=== PATIENT | female | born 1960 | race Caucasian/White ===

== ENCOUNTER → 2023-10-03 14:41 | Outpatient (REF) | payer BC, SELFPAY | LOC: HWWDC 14:41 | PROVIDERS: ATTENDING PHYSICIAN Internal Medicine | DX: Z12.31 Encounter for screening mammogram for malignant neoplasm of breast (principal) | CPT/HCPCS: 77063; 77067 ==

== ENCOUNTER → 2023-12-19 06:19 | Day surgery (SDC) | payer BC, SELFPAY ==
[2023-12-19 07:10] LABS: Glucose - Point of Care 116 mg/dl (70-99)
== END ==
LOC: GI 06:19
PROVIDERS: ATTENDING PHYSICIAN Internal Medicine; FAMILY PHYSICIAN Internal Medicine
DX: Z12.11 Encounter for screening for malignant neoplasm of colon (principal); K57.30 Diverticulosis of large intestine without perforation or abscess without bleeding
CPT/HCPCS: G0121; 82962

== ENCOUNTER → 2024-03-13 14:56 | Outpatient (REF) | payer BC, SELFPAY | LOC: HWRCS 14:56 | PROVIDERS: ATTENDING PHYSICIAN Internal Medicine Cardiovascular Disease; FAMILY PHYSICIAN Internal Medicine | DX: I35.0 Nonrheumatic aortic (valve) stenosis (principal) | CPT/HCPCS: 93306 ==

== ENCOUNTER → 2024-04-01 14:35 | Outpatient (REF) | payer BC, SELFPAY | LOC: HWRAD 14:35 | PROVIDERS: ATTENDING PHYSICIAN Internal Medicine | DX: Z78.0 Asymptomatic menopausal state (principal) | CPT/HCPCS: 77080 ==

== ENCOUNTER 2024-04-14 21:42 | Inpatient (IN) | payer BC, SELFPAY ==
--- NOTE | 2024-04-14 13:04 | ED.GENMED ---
ED Provider Triage
<Jenny Boyd PA-C - Last Filed: 04/14/24 13:10>
-
Patient seen by provider in Triage?: Seen in Triage
Attestation: A medical screening examination has been initiated by a qualified medical provider. Based on the assessment performed at this time, it has been determined that an emergent medical condition may exist and the patient has been informed
that further medical evaluation and possible additional diagnostic testing may be needed.
HPI: 63yoF here with dizziness. She was standing at work around 11:30am this morning when she started to feel lightheaded, nauseous, and broke out into a cold sweat. [place] off balance but denies vertigo. Still feels dizzy and sister states her gait
is abnormal. Recent echo last month showed borderline severe aortic stenosis.
GENERAL: Alert , in no apparent distress
EYE: No visual abnormalities.
NECK: Trachea midline
ENT: No visible abnormalities.
LUNGS: No acute respiratory distress
NEUROLOGICAL: Alert and oriented
SKIN: Skin intact. No visible changes.
MUSCULOSKELETAL: Moving extremities normally
PSYCH: Normal and appropriate interaction.
This is a medical evaluation conducted in person to initiate diagnostic evaluation and provide initial therapeutics. Please see further documentation by the treating clinician.
Cardiac labs, EKG, and CT head ordered.
History of Present Illness
<Jenny Boyd PA-C - Last Filed: 04/14/24 13:10>
General
Chief Complaint: Dizziness
Time Seen by Provider: 04/14/24 16:49
<Lorne Carroll DO - Last Filed: 04/14/24 20:11>
History of Present Illness
History of Present Illness:
TIME OF INITIAL ENCOUNTER: 5 PM
HPI:
At about 11:30 AM today, while at work, she had sensation of ataxia. She was having trouble walking. Symptoms are persisting but somewhat improved. She had no weakness. This is associated with dizziness and nausea. She felt as if she was going
to pass out earlier.
EXAM:
GENERAL: Well appearing in no distress
HEENT: Moist oral mucosa
CARDIOVASCULAR: No murmurs, normal heart rate, regular rhythm, No chest wall tenderness
PULMONARY: No respiratory distress, breath sounds are clear and equal
ABDOMEN: Soft with no peritoneal signs, no tenderness
NEUROLOGIC: Excellent strength all extremities, slightly impaired finger-nose testing on the right, she was ataxic with walk when I tested her gait and she stumbled to the right side
PSYCHIATRIC: Appropriate mental status, normal insight and judgement
EXTREMITIES: Nontender, no edema, moves all extremities equally
SKIN: No rash, no lesions
NUMBER AND COMPLEXITY OF PROBLEMS ADDRESSED AT THE ENCOUNTER
� Chronic conditions affecting care: High blood pressure, hyperlipidemia, diabetes
� Acute Exacerbation and/or Progression of Chronic Illness: High blood pressure, hyperlipidemia, diabetes
� Differential Diagnosis includes: CVA, TIA, intracranial mass
AMOUNT AND/OR COMPLEXITY OF DATA TO BE REVIEWED AND ANALYZED
� I performed an independent evaluation of and my interpretation is:
EKG: Sinus 75, left axis deviation, no acute ST abnormality
CT: CT brain shows no acute abnormality
X-rays:
Laboratory Studies: Glucose 222, CBC relatively unremarkable, creatinine slightly elevated 1.2, troponin less than 0.012
Other:
� Review of other/old records: The patient had colonoscopy in November 2023
� Clinical information was obtained by an independent historian: I spoke to sister at bedside
� Prescriptions/Medications Considered but not given:
� Further testing considered but not performed:
RISK OF COMPLICATIONS AND/OR MORBIDITY OR MORTALITY OF PATIENT MANAGEMENT
� Social determinants of health affecting care: Lives at home
� Discussion with other providers: I discussed case with Dr. Leiva who recommends CTA head and neck and also recommends MRI
� Escalation of care including admission/observation vs risk of discharge considered: The patient does have some ataxia on physical examination. She is not back to her baseline. CTA also obtained. Will plan to keep in the
hospital for MRI and further neurologic evaluation.
ANY OTHER UPDATES:
Past History
<Jenny Boyd PA-C - Last Filed: 04/14/24 13:10>
Past History
ED Past Medical History: HTN, Hypercholesterolemia and NIDDM
ED Past Surgical History: Appendectomy, Cholecystectomy and
Social History
Living: with family
Employment: Employed
Phy Exam
<Lorne Carroll DO - Last Filed: 04/14/24 20:11>
Physical Exam
Physical Exam:
See HPI
Course
<Jenny Boyd PA-C - Last Filed: 04/14/24 13:10>
Orders/Labs/Results
Orders:
Orders
04/14/24 13:09
Electrocardiogram (*1) Urgent
Reason for Study: Vertigo / Dizzy
EKG- Treatment ONCE
04/14/24 13:10
CT Head W/o Iv Contrast Urgent
Comment:
Reason For Exam: Dizziness
04/14/24 13:12
Complete Blood Count/With Diff Urgent
Comprehensive Metabolic Panel Urgent
Troponin I Urgent
04/14/24 17:13
CT Head & Neck Angio W/wo IV Urgent
Comment:
Reason For Exam: acute ataxia
Abnormal Lab Results
04/14/24
13:12
MCHC 32.6 L g/dL
(33.0-37.0)
RDW 15.3 H %
(11.5-14.5)
Absolute Neuts (auto) 8.4 H 10^3/uL
(1.4-6.5)
Neutrophils % 77.7 H %
(42.2-75.2)
Lymphocytes % 12.6 L %
(20.5-51.1)
BUN 33 H mg/dl
(7-17)
Creatinine 1.2 H mg/dL
(0.6-1.0)
Glucose 222 H mg/dl
(70-99)
04/14/24 13:12
04/14/24 13:12
Vital Signs
Initial and Last Documented VS:
Initial Vital Signs
Temp Pulse Resp BP Pulse Ox
97.7 F 90 16 123/70 97
04/14/24 13:05 04/14/24 13:05 04/14/24 13:05 04/14/24 13:05 04/14/24 13:05
Last Documented Vital Signs
Temp Pulse Resp BP Pulse Ox
97.7 F 80 17 148/62 96
04/14/24 13:05 04/14/24 20:00 04/14/24 20:00 04/14/24 16:28 04/14/24 20:00
<Lorne Carroll, DO - Last Filed: 04/14/24 20:11>
Orders/Labs/Results
Orders:
Orders
04/14/24 13:09
Electrocardiogram (*1) Urgent
Reason for Study: Vertigo / Dizzy
EKG- Treatment ONCE
04/14/24 13:10
CT Head W/o Iv Contrast Urgent
Comment:
Reason For Exam: Dizziness
04/14/24 13:12
Complete Blood Count/With Diff Urgent
Comprehensive Metabolic Panel Urgent
Troponin I Urgent
04/14/24 17:13
CT Head & Neck Angio W/wo IV Urgent
Comment:
Reason For Exam: acute ataxia
Abnormal Lab Results
04/14/24
13:12
MCHC 32.6 L g/dL
(33.0-37.0)
RDW 15.3 H %
(11.5-14.5)
Absolute Neuts (auto) 8.4 H 10^3/uL
(1.4-6.5)
Neutrophils % 77.7 H %
(42.2-75.2)
Lymphocytes % 12.6 L %
(20.5-51.1)
BUN 33 H mg/dl
(7-17)
Creatinine 1.2 H mg/dL
(0.6-1.0)
Glucose 222 H mg/dl
(70-99)
04/14/24 13:12
04/14/24 13:12
Vital Signs
Initial and Last Documented VS:
Initial Vital Signs
Temp Pulse Resp BP Pulse Ox
97.7 F 90 16 123/70 97
04/14/24 13:05 04/14/24 13:05 04/14/24 13:05 04/14/24 13:05 04/14/24 13:05
Last Documented Vital Signs
Temp Pulse Resp BP Pulse Ox
97.7 F 80 17 148/62 96
04/14/24 13:05 04/14/24 20:00 04/14/24 20:00 04/14/24 16:28 04/14/24 20:00
<Lorne Carroll DO - Last Filed: 04/14/24 20:11>
*Critical Care Note
Total Time (30-74mins, 75-104mins- exclusive of procedures): Not Applicable
ED Attending Note
<Jenny Boyd PA-C - Last Filed: 04/14/24 13:10>
-
Portions of this chart may have been created with voice recognition software.� Occasional wrong word or��sound alike� substitutions may have occurred due to the inherent limitations of voice recognition software.
Discharge Plan
Departure
Prescriptions:
No Action
citalopram 40 mg Tablet
40 mg PO HS
atorvastatin 10 mg Tablet
10 mg PO HS
Theragen Tablet
1 tab PO HS
calcium carbonate-vitamin D3 [Calcium 600 + D(3)] 600 mg-5 mcg (200 unit) Tablet
2 tab PO HS
ibuprofen [Advil] 200 mg Tablet
400 mg PO HS
metoprolol succinate 25 mg Tablet Extended Release 24 Hr
25 mg PO HS
lisinopril 40 mg Tablet
40 mg PO HS
dapagliflozin propanediol [Farxiga] 10 mg Tablet
10 mg PO HS
Trulicity 1.5 mg/0.5 mL Pen Injector
1.5 mg SC ARIAS
Referrals:
Jennifer De Los Santos MD [Family Provider] -
Interventions
Interventions:
*Risk Screen - Suicide Last Done: 04/14/24 13:05
*General Assessment Last Done: 04/14/24 13:05
*Neglect/Abuse Screening Last Done: 04/14/24 13:08
ED- Fall Risk Assessment Last Done: 04/14/24 16:29
*ED COVID-19 Vaccine History Last Done: 04/14/24 16:29
ED- Neurological Assessment Last Done: 04/14/24 16:31
ED Swallowing Screen Last Done: 04/14/24 16:29
Discharge Date and Time
Print Language: ITALIAN
[2024-04-14 13:05] VITALS: BP 123/70
[2024-04-14 13:24] LABS: % Basophils 0.5 % (0-2); % Eosinophils 3.4 % (0-6); % Immature Granulocytes 0.4 % (0-0.5); % Lymphocytes 12.6 % (20.5-51.1); % Monocytes 5.4 % (1.7-9.3); % Neutrophils 77.7 % (42.2-75.2); Absolute Basophils 0.1 10^3/uL (0-0.2); Absolute Eosinophils 0.4 10^3/uL (0-0.7); Absolute Lymphocytes 1.4 10^3/uL (1.2-3.4); Absolute Monocytes 0.6 10^3/uL (0.1-0.6); Absolute Neutrophils 8.4 10^3/uL (1.4-6.5); Hematocrit 38.4 % (37.0-47.0); Hemoglobin 12.5 g/dL (12.0-16.0); Mean Corp Hgb Conc. 32.6 g/dL (33.0-37.0); Mean Corpuscular Hgb 28.5 pg (27.0-31.0); Mean Corpuscular Volume 87.5 fL (81.0-99.0); Mean Platelet Volume 10.3 fL (7.4-10.4); Nucleated Red Blood Cells % 0 %; Platelet Count 311 10^3/uL (130-400); Red Blood Cell Count 4.39 10^6/uL (4.20-5.40); Red Cell Dist. Width 15.3 % (11.5-14.5); White Blood Cell Count 10.8 10^3/uL (4.8-10.8)
[2024-04-14 13:38] LABS: ALT (SGPT) 18 U/L (0-35); AST (SGOT) 24 U/L (14-36); Albumin 4.3 g/dl (3.5-5.0); Alkaline Phosphatase 94 U/L (38-126); Blood Urea Nitrogen 33 mg/dl (7-17); Calcium 9.2 mg/dl (8.4-10.2); Carbon Dioxide 22 mmol/L (22-30); Chloride 103 mmol/L (98-107); Glucose 222 mg/dl (70-99); Potassium 4.9 mmol/L (3.5-5.1); Sodium 141 mmol/L (135-145); Total Bilirubin 0.4 mg/dl (0.2-1.3); Total Protein 6.9 g/dl (6.3-8.2); eGFR 50.23
[2024-04-14 13:55] LABS: Troponin I < 0.012 ng/ml
[2024-04-14 16:25] VITALS: BMI 35.4
[2024-04-14 16:28] VITALS: BP 148/62
--- NOTE | 2024-04-14 20:19 | HPS.HSE ---
Family Physician
-
Family Physician: Jennifer De Los Santos
Chief Complaint
-
lightheaded off balance
History of Present Illness
63-year-old female who was while at work standing around 1130 this a.m. she started feel lightheaded with a foggy sensation. She walked to the nurses office and asked to sit down where she felt hot, nauseous broke out into a cold sweat then started
feel off balance. She reports the nurse took her blood pressure which was 125/60. She reports feeling dizzy with abnormal gait many more towards the right side. She denies any weakness in bilateral upper or lower extremities no slurred speech,
blurred vision. She called her cardiology office [facility] who advised her to come to the ER given recent echo showing severe aortic stenosis. While in the ER she has a frontal headache she had negative CTA head and neck. She was orthostatic
with lying sitting standing feeling a sensation of dizziness and or spinning sensation. She denies sore throat, cough, chest pain, palpitations, shortness of breath, abdominal pain, nausea, vomiting, diarrhea, urinary symptoms. She has a past
medical history of obesity, gastric sleeve 2016, severe aortic stenosis via echo 03/13/2024, CKD 3 A, hypertension, DM 2, depression, obesity she has strong family history of CAD with multiple family members 57-62..
Medical History
Past Medical History
Past Medical History: Reports Other
Additional Past Medical History:
obesity,
gastric sleeve 2016,
severe aortic stenosis via echo 03/13/2024
CKD 3 A
hypertension
DM 2
depression,
obesity
Past Surgical History: Reports Other
Additional Past Surgical History:
Gastric bypass
Cholecystectomy
Appendectomy
section x 2
Social History
Tobacco: Non-smoker
Alcohol: None
Drug: None
Personal:
Living: With Family
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
Family History
Family History: Early CAD (Brother first HI age 36, mother age 57 HI, father first HI age 50s, father age 58 CVA, brother first CVA age 35, 1 brother HI age 62, 2 sisters healthy,)
Allergies / Home Medications
Allergies reflects when Allergies were last updated in [employer].
Home Medications with original date entered in [employer]
Allergy/Medication List:
Allergies
Allergy/AdvReac Type Severity Reaction Status Date / Time
simvastatin [From Zocor] Allergy Unknown Verified 04/14/24 13:04
Sulfa (Sulfonamide Allergy Unknown Verified 04/14/24 13:04
Antibiotics)
Home Medications
Aspir-81 81 mg PO DAILY 04/14/24
atorvastatin 10 mg tablet 10 mg PO HS 04/14/24
calcium 600 mg (as carbonate)-vitamin D3 5 mcg (200 unit) tablet (Calcium 600 + D(3)) 2 tab PO HS 04/14/24
citalopram 40 mg tablet 40 mg PO HS 04/14/24
dapagliflozin propanediol 10 mg tablet (Farxiga) 10 mg PO HS 04/14/24
dulaglutide 1.5 mg/0.5 mL subcutaneous pen injector (Trulicity) 1.5 mg SC ARIAS 04/14/24
ibuprofen 200 mg tablet (Advil) 400 mg PO HS 04/14/24
lisinopril 40 mg tablet 40 mg PO HS 04/14/24
metoprolol succinate 25 mg tablet,extended release 24 hr 25 mg PO HS 04/14/24
therapeutic multivitamin 1 tab PO HS 04/14/24
Review of Systems
-
History Source: Patient and Family (2 sisters at bedside)
A 12 point ROS was completed and negative except as noted: Yes
Constitutional: Denies Fever, Weight Loss, Fatigue or Chills
EENT: Denies Sore Throat or Runny Nose
Respiratory: Denies Cough or Trouble Breathing
Cardiac: Denies Chest Pain, Diaphoresis, Palpitations or Syncope
Abdomen/GI: Denies Abdominal Pain, Nausea, Vomiting, Diarrhea, Constipated, Bloody Stools or Black Stools
: Denies Dysuria, Frequency, Flank Pain, Incontinence, Difficulty Voiding or Urgency
Musculoskeletal: Denies Joint Pain or Edema
Skin: Denies Itching or Rash
Neurological: Reports Dizzy (Lightheaded foggy sensation with position change), Headache and Other (Reported ataxia with walking feels she is leaning slightly more to the right); Denies Weakness
Endocrine: Reports No Symptoms
Hematologic/Lymphatic: Reports No Symptoms
Psych: Reports Calm
Physical Exam
Vital Signs
Vital Signs
Temp Pulse Resp BP Pulse Ox
97.7 F 80 17 148/62 96
04/14/24 13:05 04/14/24 20:00 04/14/24 20:00 04/14/24 16:28 04/14/24 20:00
Physical Exam
General: Conversant; No Pain, Fever or Chills
HEENT: NormoCephalic, Anicteric, Moist mucous membranes, PERRLA, [place] Conjunctivae, No Ptosis and Neck Nontender
Respiratory: Clear; No Wheezes, Rales or Rhonchi
Cardiac: S1/S2, Regular Rhythm and Murmur (4/6 systolic murmur known history aortic stenosis severe); No Rub, Gallop, Peripheral Edema or Carotid Bruits
Breast: Deferred by me
GI: Soft, Non Tender, Non Distended, Normal Bowel Sounds and No Hepatosplenomegaly
Rectal: Deferred by Provider
Genito-urinary: Deferred by me
Musculoskeletal: No Clubbing, No Cyanosis and No Edema
Skin: Warm and Dry; No Rash or Jaundice
Neuro: AO x 3, No Motor Deficits (While in bed or standing), Cranial Nerves Intact, No Sensory Deficits and Other (Has reported ataxia with walking feels she is leaning more towards the right when standing patient is not drifting has 5 out of 5
strength upper and lower extremities. Dizziness with spinning sensation during orthostatic vitals lying to sitting sitting to standing); No Slurred Speech, Facial Droop, Tremors or Sedated
Psych: Calm
Laboratory Results
-
04/14/24 13:12
04/14/24 13:12
Laboratory Results
Total Bilirubin 0.4 mg/dl (0.2-1.3) 04/14/24 13:12
AST 24 U/L (14-36) 04/14/24 13:12
ALT 18 U/L (0-35) 04/14/24 13:12
Alkaline Phosphatase 94 U/L (38-126) 04/14/24 13:12
Troponin I < 0.012 ng/ml 04/14/24 13:12
Impression/Plan
-
Impression/plan:
Inpatient telemetry
#Orthostatic hypotension possible volume depletion versus valvular heart disease progression
Lying 149/78 HR 78
Sitting 128/70 HR 96-symptomatic with dizziness/spinning
Standing 116/79 HR 105-symptomatic with dizziness/lightheaded
#Acute ataxia/dizziness concern for CVA/TIA versus symptomatic aortic stenosis
-Continue aspirin 81 mg now and daily, atorvastatin 10 mg at bedtime(may require increased dosage based on lipid profile)
-MRI brain per Dr. Leiva neurology
-Consult neurology
-Check lipid profile, HgbA1c
-Hold Advil 400 mg at bedtime
2D echo 03/13/2024: EF 55 to 60%, no wall abnormalities, mild LVH, stage I diastolic dysfunction, borderline severe aortic stenosis peak mean gradients 76/41 mmHg, pulm arterial pressure 35 mmHg
CTA head and neck: No significant arterial stenosis. No aneurysm. Mild atherosclerotic calcifications of the bilateral carotid bifurcations without significant arterial stenosis no evidence of acute dissection
#Severe aortic stenosis
-Consult CBC cardiology
Recent 2D echo 03/13/2024 stenosis progressed from 31 mmHg to 41 mmHg February 2023 to February 2024
#MIHAI on CKD 3A
Creat 1.2/bun 33-prior creat 0.9 02/21/2022
IV NSS 100 cc/h
Follow BMP
#DM 2�uncontrolled
BS 222
Accu-Cheks with SSI, check HgbA1c, patient believes A1c in February was 7.7
-Patient on Trulicity 1.5 mg subcu Sundays
Continue Farxiga 10 mg daily
-Discussed with patient she will likely need adjustment in her Trulicity based on HgbA1c
#HTN
BP 148/62
-Continue lisinopril 40 mg at bedtime, metoprolol succinate 25 mg at bedtime
#HLD
Check lipid profile
-Continue Lipitor 10 mg daily
#Depression
Continue citalopram 40 mg at bedtime
#Obesity due to excess calorie consumption�BMI 35.4
#Hx Gastric sleeve 2014
-Weight loss recommended
-Continue Trulicity
-1800 ADA low-fat diet
DVT prophylaxis
SCDs
Full code
[2024-04-14 20:44] VITALS: BP 116/79; BP 128/70; BP 149/78; PULSE 105; PULSE 78; PULSE 96
[2024-04-14 20:47] VITALS: BP 128/70
[2024-04-14 20:50] VITALS: BP 116/79
[2024-04-14] MEDS: TYLENOL 1000 MG PO (21:21)
[2024-04-14] MEDS: NSS 1000 IV (21:29)
--- NOTE | 2024-04-14 21:54 | W.PN.UPDATE ---
Update Note
Progress Note Update
This is an addendum to the H&P written by Laurie Mcgrath on 04/14/2024. Patient seen and examined independently with FORMULA CLERK.
63-year-old female past medical history of severe aortic stenosis, hypertension, type 2 diabetes, hyperlipidemia, CKD 3A, depression, obesity, history of gastric sleeve, presenting with lightheadedness and feeling foggy with sweats and feeling off
balance. Given recent diagnosis of severe aortic stenosis she was advised by her applications engineer to come to the emergency room.
Orthostatic vital signs positive. Labs show MIHAI. Presentation likely due to hypovolemia in the setting of decreased preload secondary to severe aortic stenosis. IV fluids to be given. Neurology was consulted due to concern for CVA although CT
head and CTA head and neck remarkable. Neurology advised MRI brain. Cardiology consulted due to management of severe aortic stenosis.
Hold lisinopril and ibuprofen.
[2024-04-14] MEDS: CELEXA 40 MG PO (23:56)
[2024-04-14] MEDS: LIPITOR 10 MG PO (23:56)
[2024-04-14] MEDS: THERAGRAN 1 TABLET PO (23:57)
[2024-04-14] MEDS: TOPROL XL 25 MG PO (23:57)
[2024-04-14] MEDS: OSCAL 500 + D 1000 MG PO (23:57)
[2024-04-15] VITALS (16 sets, daily range): BP systolic 98–170; BP diastolic 42–83; PULSE 74–96; BMI 34.3
[2024-04-15] MEDS: FARXIGA 10 MG PO ×2 (00:08→22:45)
[2024-04-15 00:09] LABS: Glucose - Point of Care 211 mg/dl (70-99)
[2024-04-15] MEDS: NSS 1000 IV (02:18)
[2024-04-15 05:38] LABS: % Basophils 0.4 % (0-2); % Eosinophils 4.1 % (0-6); % Immature Granulocytes 0.4 % (0-0.5); % Lymphocytes 21.8 % (20.5-51.1); % Monocytes 6.1 % (1.7-9.3); % Neutrophils 67.2 % (42.2-75.2); Absolute Eosinophils 0.4 10^3/uL (0-0.7); Absolute Lymphocytes 2.2 10^3/uL (1.2-3.4); Absolute Monocytes 0.6 10^3/uL (0.1-0.6); Absolute Neutrophils 6.8 10^3/uL (1.4-6.5); Hematocrit 35.9 % (37.0-47.0); Hemoglobin 11.3 g/dL (12.0-16.0); Mean Corp Hgb Conc. 31.5 g/dL (33.0-37.0); Mean Corpuscular Hgb 26.9 pg (27.0-31.0); Mean Corpuscular Volume 85.5 fL (81.0-99.0); Mean Platelet Volume 10.4 fL (7.4-10.4); Nucleated Red Blood Cells % 0 %; Platelet Count 268 10^3/uL (130-400); Red Cell Dist. Width 15.4 % (11.5-14.5); White Blood Cell Count 10.2 10^3/uL (4.8-10.8)
[2024-04-15 05:46] LABS: ALT (SGPT) 15 U/L (0-35); AST (SGOT) 18 U/L (14-36); Albumin 3.5 g/dl (3.5-5.0); Alkaline Phosphatase 85 U/L (38-126); Blood Urea Nitrogen 25 mg/dl (7-17); Calcium 9.6 mg/dl (8.4-10.2); Carbon Dioxide 25 mmol/L (22-30); Chloride 108 mmol/L (98-107); Estimated Creatinine Clearance 85 ml/min; Glucose 116 mg/dl (70-99); HDL Cholesterol 64 mg/dl; LDL Cholesterol, Calculated 64 mg/dl; Magnesium 2.2 mg/dl (1.6-2.3); Potassium 4.6 mmol/L (3.5-5.1); Sodium 141 mmol/L (135-145); Total Bilirubin 0.3 mg/dl (0.2-1.3); Total Cholesterol 143 mg/dl (50-199); Triglyceride 78 mg/dl (10-149); Very Low Density Lipoprotein 15 mg/dl (0-30); eGFR > 60.00
[2024-04-15 06:36] LABS: Vitamin B12 653 pg/ml (239-931)
[2024-04-15 08:51] LABS: Glucose - Point of Care 116 mg/dl (70-99)
[2024-04-15] MEDS: NOVOLOG FLEXPEN-LOW RESISTANCE SC (09:50)
[2024-04-15] MEDS: LOW STRENGTH ASPIRIN 81 MG PO (09:50)
[2024-04-15 10:56] LABS: Glycohemoglobin (HgbA1c) 7.3 % (4.0-5.6)
--- NOTE | 2024-04-15 13:16 | W.PN.HOSP.TC ---
Today's Communication/Plan
-
monitor vitals
see plan
Continue to monitor orthostatics
PT/OT
MRI brain
Cardiology and neurology evaluation
Assessment / Plan
Assessment / Plan
General: Conversant; No Pain, Fever or Chills
HEENT: NormoCephalic, Anicteric, Moist mucous membranes, PERRLA, [place] Conjunctivae, No Ptosis and Neck Nontender
Respiratory: Clear; No Wheezes, Rales or Rhonchi
Cardiac: S1/S2, Regular Rhythm and Murmur (4/6 systolic murmur known history aortic stenosis severe); No Rub, Gallop, Peripheral Edema or Carotid Bruits
Breast: Deferred by me
GI: Soft, Non Tender, Non Distended, Normal Bowel Sounds
Musculoskeletal:No Edema
Skin: Warm and Dry; No Rash or Jaundice
Neuro: AO x 3, No Motor Deficits
Psych: Calm
Orthostatic hypotension possible volume depletion versus valvular heart disease progression
Continue to monitor orthostatics
TEDS
#Acute ataxia/dizziness concern for CVA/TIA versus symptomatic aortic stenosis
-Continue aspirin 81 mg now and daily, atorvastatin 10 mg at bedtime(may require increased dosage based on lipid profile)
-MRI brain per Dr. Leiva neurology
-Consulted neurology
-Hold Advil 400 mg at bedtime
2D echo 03/13/2024: EF 55 to 60%, no wall abnormalities, mild LVH, stage I diastolic dysfunction, borderline severe aortic stenosis peak mean gradients 76/41 mmHg, pulm arterial pressure 35 mmHg
CTA head and neck: No significant arterial stenosis. No aneurysm. Mild atherosclerotic calcifications of the bilateral carotid bifurcations without significant arterial stenosis no evidence of acute dissection
#Severe aortic stenosis
-Consulted [facility] cardiology; monitor
Recent 2D echo 03/13/2024 stenosis progressed from 31 mmHg to 41 mmHg February 2023 to February 2024
#MIHAI on CKD 3A
Creat 1.2/bun 33-prior creat 0.9 02/21/2022
IV NSS 100 cc/h
Follow BMP
#DM 2�uncontrolled
Accu-Cheks with SSI, A1c 7.3
-Patient on Trulicity 1.5 mg subcu Sundays
Continue Farxiga 10 mg daily
-Discussed with patient she will likely need adjustment in her Trulicity based on HgbA1c
#HTN
BP 148/62
-Continue lisinopril 40 mg at bedtime, metoprolol succinate 25 mg at bedtime
#HLD
Check lipid profile
-Continue Lipitor 10 mg daily
#Depression
Continue citalopram 40 mg at bedtime
#Obesity due to excess calorie consumption�BMI 35.4
#Hx Gastric sleeve 2014
-Weight loss recommended
-Continue Trulicity
-1800 ADA low-fat diet
DVT prophylaxis
SCDs
Full code
Anticipated Discharge: Within 24 hours
Subjective/Interval History
-
Date of Service: April 15, 2024
denies pain
Objective Data
-
Labs:
Laboratory Results
04/15/24
05:04
WBC 10.2
Hgb 11.3 L
Hct 35.9 L
Plt Count 268
Sodium 141
Potassium 4.6
Chloride 108 H
Carbon Dioxide 25
BUN 25 H
Creatinine 0.9
Glucose 116 H
Calcium 9.6
Total Bilirubin 0.3
AST 18
ALT 15
Alkaline Phosphatase 85
Vital Signs:
Vital Signs
Temp Pulse Resp BP Pulse Ox
98.4 F 78 15 136/83 96
04/15/24 07:49 04/15/24 12:00 04/15/24 12:00 04/15/24 11:29 04/15/24 08:00
--- NOTE | 2024-04-15 13:29 | CON.NEURO4 ---
Consultation - Neurology 4
-
CONSULTING PHYSICIAN: Selam
REFERRING PHYSICIAN: BRITTANIE Vo
DICTATED BY: Selam
DATE/TIME OF REQUEST: 04/14 at 21:10
DATE/TIME OF CONSULTATION: 04/15/24 at 1200
Reason for Consultation: ataxia
History of Present Illness:
63-year-old female with abrupt onset of lightheadedness brain fog while standing at work yesterday at approximately 11:30 AM. Stumbled while walking, head to lean against a counter and then was able to sit down.' She 'felt hot all over followed by
breaking out in a cold sweat and had nausea.' She called her rough planer tender and her sister who is an ER nurse at [facility] who directed her to call 911. She states that she still had some gait ataxia last night as well as brain fog. She
says that 'overnight when she got up to use the bathroom she felt that she was back to normal.' She remains at her baseline. She does have a history of lightheadedness/dizziness/vertigo in the past but it was never this severe. She does have a
history of several vascular risk factors, severe aortic stenosis diagnosed via echo last month and actively follows with Dr. Reyes and has a strong family history of early CAD and stroke.
She was found to be orthostatic. She stumbled to the right and had impaired finger to nose on exam in the ED. Exam is now normal.
Past Medical History:
obesity
severe aortic stenosis via echo 03/13/2024, follows with Dr. Reyes
CKD 3 A
hypertension
DM 2
depression
Past Surgical History:
Gastric bypass in 2016
Cholecystectomy
Appendectomy
section x 2
Social History
Tobacco: Non-smoker
Alcohol: None
Drug: None
Personal:
Living: With Family
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
Family History: Early CAD and stroke: Brother first MA age 36, mother age 57 MA, father first MA age 50s, father age 58 CVA, brother first CVA age 35, 1 brother MA age 62, 2 sisters healthy
Allergies
simvastatin [From Zocor] Allergy (Verified 04/14/24 13:04)
Unknown
Sulfa (Sulfonamide Antibiotics) Allergy (Verified 04/14/24 13:04)
Unknown
Home Medications
�Medication �Instructions �Recorded
aspirin 81 mg tablet,delayed 81 mg PO HS Blood Clot 04/14/24
release Prevention/Tx
atorvastatin 10 mg tablet 10 mg PO HS High Cholesterol 04/14/24
calcium 600 mg (as 2 tab PO HS Supplement 04/14/24
carbonate)-vitamin D3 5 mcg (200
unit) tablet (Calcium 600 + D(3))
citalopram 40 mg tablet 40 mg PO HS depression/anxiety 04/14/24
dapagliflozin propanediol 10 mg 10 mg PO HS diabetes 04/14/24
tablet (Farxiga)
dulaglutide 1.5 mg/0.5 mL 1.5 mg SC ARIAS diabetes 04/14/24
subcutaneous pen injector
(Trulicity)
ibuprofen 200 mg tablet (Advil) 400 mg PO HS pain 04/14/24
lisinopril 40 mg tablet 40 mg PO HS Blood Pressure 04/14/24
metoprolol succinate 25 mg 25 mg PO HS Blood Pressure 04/14/24
tablet,extended release 24 hr
therapeutic multivitamin 1 tab PO HS Supplement 04/14/24
Review of Symptoms:
Patient denies any fever, headache, chest pain, shortness of breath, GI or symptoms.
�Per the HPI.�All systems are reviewed negative except above.
Vital Signs
Temp Pulse Resp BP Pulse Ox
98.4 F 78 15 136/83 96
04/15/24 07:49 04/15/24 12:00 04/15/24 12:00 04/15/24 11:29 04/15/24 08:00
Lab Results
04/15/24 05:04
04/15/24 05:04
Sodium 141 mmol/L (135-145) 04/15/24 05:04
Potassium 4.6 mmol/L (3.5-5.1) 04/15/24 05:04
BUN 25 mg/dl (7-17) H 04/15/24 05:04
Glucose 116 mg/dl (70-99) H 04/15/24 05:04
Calcium 9.6 mg/dl (8.4-10.2) 04/15/24 05:04
LDL Cholesterol, Calc 64 mg/dl 04/15/24 05:04
Vitamin B12 653 pg/ml (239-931) 04/15/24 05:04
Physical Exam:
The patient is afebrile, heart sounds S1 and S2 are regular and chest is clear to auscultation bilaterally.
NIH Stroke Scale:
I performed the NIH stroke scale on the patient on 04/15/24 at 1200. The patient scored 0 points on the NIH stroke scale assessment.
Neurologic Examination:
The patient is awake, alert and oriented x 3. She is able to follow commands and answer questions appropriately. There is no aphasia or dysarthria. On cranial nerve assessment, pupils are 3 mm bilateral, round and reactive to light and
accommodation. Visual barry are full. Extraocular movements are intact. Facial sensations are intact and bilaterally symmetrical, there is no facial asymmetry. Hearing is intact bilaterally to normal conversation volume. Tongue palate and uvula
are midline. Sternocleidomastoid strengths are full bilaterally. Motor strengths are 5/5 bilateral upper and lower extremities on medical research [place] scale. There is no drift or involuntary movement noted. Deep tendon reflexes are 2+ bilateral
upper and lower extremities and Babinski is absent bilaterally. Sensations of pain, touch, temperature and vibration are intact and bilaterally symmetrical. There was no extinction noted on double simultaneous stimulation. Coordination is intact by
finger to nose bilaterally.

Neuro Imaging:
HCT, 04/14:
There are no focal or acute intracranial abnormalities.
There is mild cerebellar atrophy
MRI brain: pending
CTA head/neck, 04/14:
CTA Head: No significant arterial stenosis. No aneurysm.
CTA Neck: Mild atherosclerotic calcifications of the bilateral carotid bifurcations without significant arterial stenosis. No evidence of acute dissection.

Impression:
CHANEL MAHONEY is a 63 year old F who has presented to the hospital with after abrupt onset of gait ataxia with lightheadedness, dizziness and brain fog. She has a history of aortic stenosis, vertigo and was found to be orthostatic. All symptoms
have now resolved.
Differentials for the patient's presentation include:
1. orthostasis due to hypovolemia
2. symptomatic aortic stenosis
3. less likely posterior circulation TIA or small stroke from which she has already recovered; does have a strong family history of early CAD/stroke and several vascular risk factors and had some focality to exam in the ER
Patient has the following risk factors for their symptoms:
obesity
severe aortic stenosis
CKD 3 A
hypertension
DM 2
IV Tenecteplase/IAT candidacy: CTA negative for LVO. TNK not given, unclear if event was stroke.
Recommendations:
-check MRI brain without contrast to evaluate for stroke
-reviewed CTA results, see above
-continue TEDs, IVF, monitoring orthostatics
-continue ASA 81mg daily. Will consider addition of Plavix --await MRI brain results
-HgbA1C elevated, will likely need increase in Trulicity dosing
- Continue atorvastatin at current dosing; LDL is 64. Goal after stroke/TIA is <70.
-B12 is normal.
- Reviewed most recent echo, 03/17
-PT/OT/ST evaluations
- DVT prophylaxis
-continue neurochecks
-if MRI brain is negative, can be discharged from my standpoint.
Should f/u in the neurology office in ~2 mos, can be seen by BRITTANIE Myers or Dr. Leiva.
Discussed patient care with: patient, nursing
[2024-04-15] MEDS: NOVOLOG FLEXPEN-LOW RESISTANCE 1 UNITS SC ×2 (13:37→18:11)
[2024-04-15 13:38] LABS: Glucose - Point of Care 173 mg/dl (70-99)
--- NOTE | 2024-04-15 14:06 | CON.CAR ---
Addendum entered and electronically signed by Shilpi Singh MD 04/15/24 15:58:
I saw and examined the patient.
The CASH APPLICATIONS COORDINATOR's note was reviewed and I agree with the note.
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
preparing food at work associated with gait disturbance of inability to walk straight, this was followed by a sense of nausea, increased heat and flushing. This is improving. We are asked to comment whether or not aortic stenosis can account for
this finding. On exam, she is alert and oriented x 3, regular rate and rhythm S1-S2 2 out of 6 crescendo decrescendo murmur in the right upper sternal border. Lungs are clear to auscultation, abdomen obese, lower extremities without edema. Story
is not consistent with this presyncope due to severe aortic stenosis. This is usually an exertional event and this started while she was standing in 1 [address] at work. There are supporting features for orthostasis and vasovagal. Certainly severe
aortic stenosis would make it harder for her to recover quickly from 1 of these causes. Most concerning is the gait disturbance she describes as weaving in and out of something while trying to walk a straight line. Neurology is on board. She
reports a MRI that has been completed. For now we will continue current cardiac medications. Would defer any further testing to neurology. We will certainly arrange close outpatient follow-up.
Recommendations discussed with Dr. Fischer, will sign off.
Original Note:
Consultation
Consultation Request
Date/Time Consultation Requested: 04/15/24 1145
Date/Time Consultation Performed: 04/15/24 1400
Requesting Provider: Dr. Fischer
Performing Provider: Maya GU for Dr. Singh
Reason for Consultation: light-headedness, aortic stenosis
Medical History
-
Chief Complaint: light-headed, dizzy, off balance
History of Present Illness:
63 y/o female with hypertension, dyslipidemia, DM2, and borderline severe aortic stenosis (echo 03/13/24- peak and mean gradient 76/41 mmHg, CHRISTINE 1.0 cm2) who is here for evaluation after she was standing yesterday around 1130 and began to feel
light-headed and dizzy with a hot feeling and nausea. She felt better after about 15 minutes and sitting down, but continued to feel foggy and unsteady until last night. She told me she had ate and drank like normal. Orthos were positive yesterday,
but normalized today. Labs in ER showed some evidence for dehydration and she was given 2 liters of IVF. She is feeling and looking well today. She does report some vertigo with laying as well. She has had vertigo in the past. She follows with
Eric in the office. Denies any CP or SOB.
Past Medical History
Past Medical History: HTN, Hypercholesterolemia, NIDDM and Valvular Disease
Social History
Tobacco: Non-Smoker
Employment: Employed (former RN, current lunch lady)
Family History
Family History: Early CAD
Allergies / Home Medications
Allergy/AdvReac Type Severity Reaction Status Date / Time
simvastatin [From Zocor] Allergy Unknown Verified 04/14/24 13:04
Sulfa (Sulfonamide Allergy Unknown Verified 04/14/24 13:04
Antibiotics)
�Medication �Instructions �Recorded �Confirmed �Type
aspirin 81 mg tablet,delayed 81 mg PO HS Blood Clot 04/14/24 04/15/24 History
release Prevention/Tx
atorvastatin 10 mg tablet 10 mg PO HS High Cholesterol 04/14/24 04/15/24 History
calcium 600 mg (as 2 tab PO HS Supplement 04/14/24 04/15/24 History
carbonate)-vitamin D3 5 mcg (200
unit) tablet (Calcium 600 + D(3))
citalopram 40 mg tablet 40 mg PO HS depression/anxiety 04/14/24 04/15/24 History
dapagliflozin propanediol 10 mg 10 mg PO HS diabetes 04/14/24 04/15/24 History
tablet (Farxiga)
dulaglutide 1.5 mg/0.5 mL 1.5 mg SC ARIAS diabetes 04/14/24 04/15/24 History
subcutaneous pen injector
(Trulicity)
ibuprofen 200 mg tablet (Advil) 400 mg PO HS pain 04/14/24 04/15/24 History
lisinopril 40 mg tablet 40 mg PO HS Blood Pressure 04/14/24 04/15/24 History
metoprolol succinate 25 mg 25 mg PO HS Blood Pressure 04/14/24 04/15/24 History
tablet,extended release 24 hr
therapeutic multivitamin 1 tab PO HS Supplement 04/14/24 04/15/24 History
Review of Systems
-
History Source: Patient
All other systems: Negative unless noted
Cardiac: Diaphoresis
Abdomen/GI: Nausea
Neurological: Dizzy and Other (unsteady)
Physical Exam
Vital Signs
Temp Pulse Resp BP Pulse Ox
98.4 F 78 15 136/83 96
04/15/24 07:49 04/15/24 12:00 04/15/24 12:00 04/15/24 11:29 04/15/24 08:00
Lab Results
04/15/24 05:04
04/15/24 05:04
Troponin I < 0.012 ng/ml 04/14/24 13:12
Physical Exam
General: Well Developed and No Apparent Distress
HEENT: Normocephalic and Anicteric
Respiratory: Clear and Non Labored Respirations
Cardiac: Regular Rhythm and Murmur (III/ systolic)
Musculoskeletal: No Edema
Skin: Warm and Dry
Neuro: AO x 3
Psych: Calm
Impression / Plan
-
Light-headed episode:
-patient presented with orthostatic signs and elevated BUN/creatinine- all now correctly s/p IVF
-this sounds like an orthostatic event in setting of volume depletion
-telemetry is stable
-recent echo as noted
-she also had unsteadiness and fogginess and has had some episodes of vertigo- neuro following and patient just had MRI
Borderline severe :
-continue to monitor closely as OP
-she has been educated on concerning s/s and will require serial echoes
HTN:
-seems stable overall presently
-continue ACEI/BB and monitor
Data Reviewed
-
EKG: Tracing Personally Visualized and interpreted
CT Scan: Report Reviewed by me (head CT 04/14/24: There are no focal or acute intracranial abnormalities. There is mild cerebellar atrophy)
Medical Tests (Nuc Med, Echo etc): Report Reviewed by me (echo 03/13/24: LVEF is 55 to 60% by visual estimation. Borderline severe aortic stenosis. Peak/mean gradients across the aortic valve are 76/41 mmHg. Using an LVOT diameter of 2.3cm., the CHRISTINE
=1.0 cm2.)
Labs: Labs Reviewed by me
--- NOTE | 2024-04-15 14:17 | CM ---
Met with patient at bedside in ED Bed 3; initial assessment completed
[facility] [address] [facility]
Patient is a Retired Nurse; lives w/spouse in a [place]; 1 step to enter; does not go down to the basement; bathroom has tub w/shower
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
DME: Glucometer
NO SNF utilization history; no recent home health care
Family member will transport home
Per PT, no skilled PT needed; If Home Health for VN is recommended, VNA is preference
Plan: Discharge to home when medically stable; no needs anticipated
[2024-04-15] MEDS: NSS IV (14:48)
[2024-04-15 16:39] LABS: Glucose - Point of Care 199 mg/dl (70-99)
[2024-04-15 21:15] LABS: Glucose - Point of Care 134 mg/dl (70-99)
[2024-04-15] MEDS: THERAGRAN 1 TABLET PO (22:45)
[2024-04-15] MEDS: LIPITOR 10 MG PO (22:45)
[2024-04-15] MEDS: TOPROL XL 25 MG PO (22:45)
[2024-04-15] MEDS: OSCAL 500 + D 1000 MG PO (22:46)
[2024-04-15] MEDS: CELEXA 40 MG PO (22:47)
[2024-04-16 02:40] VITALS: BP 134/73
[2024-04-16 06:00] VITALS: BMI 34.2
[2024-04-16 07:00] LABS: % Basophils 0.5 % (0-2); % Eosinophils 4.4 % (0-6); % Immature Granulocytes 0.2 % (0-0.5); % Lymphocytes 20.4 % (20.5-51.1); % Monocytes 6.8 % (1.7-9.3); % Neutrophils 67.7 % (42.2-75.2); Absolute Eosinophils 0.4 10^3/uL (0-0.7); Absolute Lymphocytes 1.8 10^3/uL (1.2-3.4); Absolute Monocytes 0.6 10^3/uL (0.1-0.6); Absolute Neutrophils 5.8 10^3/uL (1.4-6.5); Hematocrit 35.8 % (37.0-47.0); Hemoglobin 11.6 g/dL (12.0-16.0); Mean Corp Hgb Conc. 32.4 g/dL (33.0-37.0); Mean Corpuscular Volume 86.3 fL (81.0-99.0); Mean Platelet Volume 10.7 fL (7.4-10.4); Nucleated Red Blood Cells % 0 %; Platelet Count 264 10^3/uL (130-400); Red Blood Cell Count 4.15 10^6/uL (4.20-5.40); Red Cell Dist. Width 14.9 % (11.5-14.5); White Blood Cell Count 8.6 10^3/uL (4.8-10.8)
[2024-04-16 07:38] LABS: ALT (SGPT) 16 U/L (0-35); AST (SGOT) 20 U/L (14-36); Albumin 3.8 g/dl (3.5-5.0); Alkaline Phosphatase 84 U/L (38-126); Blood Urea Nitrogen 20 mg/dl (7-17); Calcium 10.1 mg/dl (8.4-10.2); Carbon Dioxide 26 mmol/L (22-30); Chloride 101 mmol/L (98-107); Estimated Creatinine Clearance 83 ml/min; Glucose 125 mg/dl (70-99); Potassium 4.6 mmol/L (3.5-5.1); Sodium 141 mmol/L (135-145); Total Bilirubin 0.5 mg/dl (0.2-1.3); Total Protein 6.3 g/dl (6.3-8.2); eGFR > 60.00
[2024-04-16 07:40] LABS: Glucose - Point of Care 128 mg/dl (70-99)
[2024-04-16] MEDS: NOVOLOG FLEXPEN-LOW RESISTANCE SC (07:44)
[2024-04-16] MEDS: LOW STRENGTH ASPIRIN 81 MG PO (07:45)
[2024-04-16 08:28] VITALS: BP 101/48
--- NOTE | 2024-04-16 11:13 | W.PN.HOSP.TC ---
Today's Communication/Plan
-
Monitor vital signs
see plan
Discharge today
Time of discharge 37 minutes
Assessment / Plan
Assessment / Plan
General: Conversant; No Pain, Fever or Chills
HEENT: NormoCephalic, Anicteric, Moist mucous membranes, PERRLA, [place] Conjunctivae, No Ptosis and Neck Nontender
Respiratory: Clear; No Wheezes, Rales or Rhonchi
Cardiac: S1/S2, Regular Rhythm and Murmur (4/6 systolic murmur known history aortic stenosis severe); No Rub, Gallop, Peripheral Edema or Carotid Bruits
Breast: Deferred by me
GI: Soft, Non Tender, Non Distended, Normal Bowel Sounds
Musculoskeletal:No Edema
Skin: Warm and Dry; No Rash or Jaundice
Neuro: AO x 3, No Motor Deficits
Psych: Calm
Orthostatic hypotension possible volume depletion versus valvular heart disease progression
Continue to monitor orthostatics; now improved; no lightheadedness anymore. Symptoms resolve. Did well with PT
TEDS
#Acute ataxia/dizziness concern for CVA/TIA versus symptomatic aortic stenosis
-Continue aspirin 81 mg now and daily, atorvastatin 10 mg at bedtime(may require increased dosage based on lipid profile)
-MRI brain per Dr. Leiva neurology, MRI brain without any acute stroke. Appears some inactive demyelination per MRI , I spoke with Dr. Doss from neurology and she does not think there is anything acute going on and wants patient to follow-up
with them outpatient.
neurology following
-Hold Advil 400 mg at bedtime
2D echo 03/13/2024: EF 55 to 60%, no wall abnormalities, mild LVH, stage I diastolic dysfunction, borderline severe aortic stenosis peak mean gradients 76/41 mmHg, pulm arterial pressure 35 mmHg
CTA head and neck: No significant arterial stenosis. No aneurysm. Mild atherosclerotic calcifications of the bilateral carotid bifurcations without significant arterial stenosis no evidence of acute dissection
#Severe aortic stenosis
Seen by cardiology, follow-up with cardiology outpatient. Monitor
Recent 2D echo 03/13/2024 stenosis progressed from 31 mmHg to 41 mmHg February 2023 to February 2024
#MIHAI on CKD 3A
Resolved
Follow BMP
#DM 2�uncontrolled
Accu-Cheks with SSI, A1c 7.3
-Patient on Trulicity 1.5 mg subcu Sundays
Continue Farxiga 10 mg daily
#HTN
-hold lisinopril 40 mg at bedtime, metoprolol succinate 25 mg at bedtime
#HLD
-Continue Lipitor 10 mg daily
#Depression
Continue citalopram 40 mg at bedtime
#Obesity due to excess calorie consumption�BMI 35.4
#Hx Gastric sleeve 2014
-Weight loss recommended
-Continue Trulicity
-1800 ADA low-fat diet
DVT prophylaxis
SCDs
Full code
Anticipated Discharge: Today
Subjective/Interval History
-
Date of Service: April 16, 2024
denies pain
Objective Data
-
Labs:
Laboratory Results
04/16/24
06:02
WBC 8.6
Hgb 11.6 L
Hct 35.8 L
Plt Count 264
Sodium 141
Potassium 4.6
Chloride 101
Carbon Dioxide 26
BUN 20 H
Creatinine 0.9
Glucose 125 H
Calcium 10.1
Total Bilirubin 0.5
AST 20
ALT 16
Alkaline Phosphatase 84
Vital Signs:
Vital Signs
Temp Pulse Resp BP Pulse Ox
98.0 F 68 20 101/48 100
04/16/24 08:28 04/16/24 08:28 04/16/24 08:28 04/16/24 08:28 04/16/24 08:28
I&O
04/15/24 04/16/24 04/17/24
06:59 06:59 06:59
Intake Total 480 / 480
Balance 480 / 480
--- NOTE | 2024-04-16 11:21 | W.DCSUMMARY ---
Discharge Summary
Discharge Data
Date of Admission: 04/14/24
Date of Discharge: 04/16/24
-
Pending Results: No
Hospital Course
63-year-old female with past medical history of aortic stenosis, CKD stage IIIa, diabetes mellitus, hypertension, hyperlipidemia, depression, obesity, history of gastric sleeve came to the hospital with orthostatic hypotension and acute episode of
dizziness/ataxia. For her orthostatic hypotension it continue to improve after fluid resuscitation. There was also concern of patient being symptomatic due to her severe aortic stenosis so cardiology was consulted. Patient was seen by cardiology
who recommended patient to follow-up with them closely outpatient. She had a recent echocardiogram last month so no new echocardiogram was done on this hospitalization. For her acute ataxia, her symptoms continue to improve over time with fluid
resuscitation. She was also seen by neurology who recommended MRI of the brain. MRI of the brain did not show any signs of acute stroke however did show some inactive demyelination which neurology instructed patient to follow-up with them
outpatient. She was also eval by physical therapy who recommended home for her disposition. Once her symptoms continue to improve, she was then discharged home with instructions to follow-up with all her physicians outpatient.
Discharge Plan
-
Patient Disposition: Home (Routine Discharge)
Discharge Diagnosis/Procedures: Orthostatic hypotension
Acute dizziness suspect secondary to symptomatic aortic stenosis
Possibility of demyelinating process such as inactive multiple sclerosis per MRI
Diet: As tolerated
Activity: As tolerated
Driving Restrictions: As prior to admission
Referrals:
Juanita Alexandra CRNP [Specified Professional Personl] - in one to two weeks
Jennifer De Los Santos MD [Family Provider] - in less than 1 week
Joseph Reyes MD [Active] - in two to four weeks (office will call you to arrange)
Prescriptions:
Continued
citalopram 40 mg Tablet
40 mg PO HS
atorvastatin 10 mg Tablet
10 mg PO HS
therapeutic multivitamin Tablet
1 tab PO HS
calcium carbonate-vitamin D3 [Calcium 600 + D(3)] 600 mg-5 mcg (200 unit) Tablet
2 tab PO HS
ibuprofen [Advil] 200 mg Tablet
400 mg PO HS
metoprolol succinate 25 mg Tablet Extended Release 24 Hr
25 mg PO HS
dapagliflozin propanediol [Farxiga] 10 mg Tablet
10 mg PO HS
Trulicity 1.5 mg/0.5 mL Pen Injector
1.5 mg SC ARIAS
aspirin 81 mg Tablet,Delayed Release (Dr/Ec)
81 mg PO HS
Held
lisinopril 40 mg Tablet
40 mg PO HS
Hold Instructions: Restart when blood pressure greater than 140/90
Discharge Orders:
Discharge Patient (As Directed); Ordered 04/16/24
Ordered By: Bertram Fischer
Discharge Date and Time
Discharge Date/Time: 04/16/24 12:55
Print Language: BELIZEAN
--- NOTE | 2024-04-16 11:43 | CM ---
Chart reviewed, home no needs.
Plan; Home no needs.
[2024-04-16 11:48] VITALS: BP 120/70
== END 2024-04-16 12:55 | disposition home or self-care (01) | DRG 312 ==
LOC: 4 WEST ACU 21:42
PROVIDERS: Clinical Nurse Specialist Family Health; Physician Assistant; ADMITTING PHYSICIAN Hospitalist; ATTENDING PHYSICIAN Internal Medicine; CONSULT PHYSICIAN Internal Medicine Cardiovascular Disease; EMERGENCY PHYSICIAN Emergency Medicine; FAMILY PHYSICIAN Internal Medicine; OTHER PHYSICIAN Psychiatry & Neurology Neurology
DX: I95.1 Orthostatic hypotension (principal); N17.9 Acute kidney failure, unspecified; I35.0 Nonrheumatic aortic (valve) stenosis; I12.9 Hypertensive chronic kidney disease with stage 1 through stage 4 chronic kidney disease, or unspecified chronic kidney disease; N18.31 Chronic kidney disease, stage 3a; G35 Multiple sclerosis; E11.22 Type 2 diabetes mellitus with diabetic chronic kidney disease; E66.09 Other obesity due to excess calories; F32.A Depression, unspecified; E86.1 Hypovolemia; Z82.3 Family history of stroke; E11.65 Type 2 diabetes mellitus with hyperglycemia; E78.00 Pure hypercholesterolemia, unspecified; E86.0 Dehydration; Z68.35 Body mass index [BMI] 35.0-35.9, adult; Z82.49 Family history of ischemic heart disease and other diseases of the circulatory system; Z79.82 Long term (current) use of aspirin; Z79.899 Other long term (current) drug therapy; Z98.84 Bariatric surgery status; Z88.2 Allergy status to sulfonamides; Z79.84 Long term (current) use of oral hypoglycemic drugs; Z79.85 Long-term (current) use of injectable non-insulin antidiabetic drugs; R27.8 Other lack of coordination
CPT/HCPCS: 70450; 70496; 70498; 70551; 80053; 80061; 82607; 82962; 83036; 83735; 84484; 85025; 93005; Q9967

== ENCOUNTER 2024-09-21 10:38 | Emergency (ER) | payer BC, SELFPAY ==
[2024-09-21 10:40] VITALS: BP 120/66
--- NOTE | 2024-09-21 11:03 | ED.GENMED ---
History of Present Illness
General
Chief Complaint: Musculo-Skeletal Complaint
Source: patient
Exam Limitations: none
Time Seen by Provider: 09/21/24 10:51
Nursing documentation reviewed up to this point in time: agreed with
History of Present Illness
History of Present Illness:
64-year-old female with history as documented presents to the ER for evaluation of leg pain after fall. Patient reports that yesterday she was taking the trash out; she tripped on a lip and her front door and fell forward. She said she landed on
both knees with her ankles extended and toes in dorsiflexion. Fortunately the trash bag caught her fall and she did not land on her own hands or strike her head. She has been able to ambulate since but has had some pain in the left foot and knee
and so she came to the ER to be evaluated.
Past History
Past History
ED Past Medical History: HTN, Hypercholesterolemia and NIDDM
ED Past Surgical History: Appendectomy, Cholecystectomy and
Social History
Living: with family
Employment: Employed
Review of Systems
Review of Systems
All Other Systems: ROS reviewed and negative except as documented in HPI and ROS
Musculoskeletal: Reports joint pain; Denies neck pain or back pain
Neurological: Denies headache
Phy Exam
Physical Exam
Physical Exam:
General: Well appearing and non-toxic
HEENT: protecting airway
Neck: appears supple
CV: No evidence of cyanosis
Resp: No accessory muscle use
Abd: Non-distended
Extremities: No deformities; on exam of the left knee she has minor joint effusion, minor tenderness medial joint line, no bruising or deformity, no laxity on varus and valgus stress, negative anterior drawer sign, no pain with manipulation of the
patella; able to flex to approximately 120 degrees before she begins to have pain //on exam of the left foot she has tenderness along the midfoot, no tenderness in the instep or along the fifth metatarsal, no tenderness to the lateral and medial
malleolus; she has some mild swelling and ecchymosis along the midfoot; she has a good strong DP and PT pulse distal left lower extremity
Neuro: Alert
Psych: Normal affect
Skin: Intact
Scores
Heart Failure Risk
Heart Failure Risk Score: Not Applicable
Heart Score for Chest Pain Patients
STEMI patient?: Not applicable
Withdrawal Assessment of Alcohol
Withdrawal Assessment Completed?: Not applicable
Course
Orders/Labs/Results
Orders:
Orders
09/21/24 10:52
CR Foot - Left Min 3 Views Urgent
Comment:
Reason For Exam: foot pain s/p fall
CR Knee - Left 4 Or More View* Urgent
Comment:
Reason For Exam: knee pain s/p fall
09/21/24 11:13
Ibuprofen [Motrin] 400 mg PO NOW STA
Vital Signs
Initial and Last Documented VS:
Initial Vital Signs
Temp Pulse Resp BP Pulse Ox
37.0 C 98 18 120/66 98
09/21/24 10:40 09/21/24 10:40 09/21/24 10:40 09/21/24 10:40 09/21/24 10:40
Last Documented Vital Signs
Temp Pulse Resp BP Pulse Ox
37.0 C 78 20 128/84 99
09/21/24 10:40 09/21/24 12:16 09/21/24 12:16 09/21/24 12:16 09/21/24 12:16
MDM/Problems Addressed
Differential Diagnosis Includes:
Foot pain: Foot sprain, fracture
Knee pain: Ligamentous injury, osteoarthritis, fracture, sprain
MDM/Problems Addressed:
64-year-old female with history as documented presents to the ER for evaluation of left leg pain after a fall yesterday. Vitals and exam as above. Suspect likely knee and foot sprain based on clinical exam but will check x-rays. Treat with
Motrin. Reassess after the above.
*Critical Care Note
Total Time (30-74mins, 75-104mins- exclusive of procedures): Not Applicable
ED Attending Note
-
Portions of this chart may have been created with voice recognition software.� Occasional wrong word or��sound alike� substitutions may have occurred due to the inherent limitations of voice recognition software.
Discharge Plan
Departure
Patient Disposition: Home (Routine Discharge)
Date of Disposition: 09/21/24
Time of Disposition: 11:53
Patient with high blood pressure during this ER visit?: No
Discharge Problem:
Knee sprain, Foot sprain
Instructions: Foot Sprain ED, Knee Sprain ED
Prescriptions:
New
oxycodone 5 mg tablet
5 mg PO Q8H PRN (Reason: Pain) Qty: 14 0RF
No Action
citalopram 40 mg Tablet
40 mg PO HS
atorvastatin 10 mg Tablet
10 mg PO HS
therapeutic multivitamin Tablet
1 tab PO HS
calcium carbonate-vitamin D3 [Calcium 600 + D(3)] 600 mg-5 mcg (200 unit) Tablet
2 tab PO HS
ibuprofen [Advil] 200 mg Tablet
400 mg PO HS
metoprolol succinate 25 mg Tablet Extended Release 24 Hr
25 mg PO HS
lisinopril 40 mg Tablet
40 mg PO HS
dapagliflozin propanediol [Farxiga] 10 mg Tablet
10 mg PO HS
Trulicity 1.5 mg/0.5 mL Pen Injector
1.5 mg SC ARIAS
aspirin 81 mg Tablet,Delayed Release (Dr/Ec)
81 mg PO HS
Referrals:
Jennifer De Los Santos MD [Family Provider] - Follow up in 5-7 days
Israel Clemente MD [Active] - As needed (Orthopedics--as needed for persistent symptoms)
Stand Alone Forms: Return to Work
Activity Restrictions/Additional Instructions:
Thank you for visiting the Emergency Department at [facility].
1. Please schedule a follow up appointment as directed. Call first thing tomorrow morning to make an appointment.
2. If indicated, please take your medications as instructed and indicated on discharge paperwork.
3. If any of your symptoms do not improve, or persist, or become more severe within 6-12 hours, please return to the emergency department for further care.
4. Please return to the emergency department if you develop a headache, neck pain/stiffness, fever greater than 100.4F, chest pain, shortness of breath, persistent nausea, vomiting, slurred speech, difficulty walking, numbness/tingling, weakness,
signs of infection or any other symptoms that are worrisome to you.
Please call [phone] if you have any questions.
Interventions
Interventions:
*Risk Screen - Suicide Last Done: 09/21/24 10:40
*General Assessment Last Done: 09/21/24 10:40
*Neglect/Abuse Screening Last Done: 09/21/24 10:40
*ED COVID-19 Vaccine History Last Done: 09/21/24 10:40
*Nursing Disposition Last Done: 09/21/24 12:16
ED-Musculoskeletal Assessment Last Done: 09/21/24 11:30
Discharge Date and Time
Discharge Date/Time: 09/21/24 12:21
Print Language: TUVALU[place]
[2024-09-21] MEDS: MOTRIN 400 MG PO (11:31)
[2024-09-21 12:16] VITALS: BP 128/84
== END 2024-09-21 12:21 | disposition home or self-care (01) ==
LOC: EMR 10:38
PROVIDERS: EMERGENCY PHYSICIAN Emergency Medicine; FAMILY PHYSICIAN Internal Medicine
DX: S83.92XA Sprain of unspecified site of left knee, initial encounter (principal); S93.602A Unspecified sprain of left foot, initial encounter; S90.32XA Contusion of left foot, initial encounter; W01.0XXA Fall on same level from slipping, tripping and stumbling without subsequent striking against object, initial encounter; Y93.89 Activity, other specified; I10 Essential (primary) hypertension; E78.00 Pure hypercholesterolemia, unspecified; E11.9 Type 2 diabetes mellitus without complications; Z90.49 Acquired absence of other specified parts of digestive tract
CPT/HCPCS: 99283; 73564; 73630

== ENCOUNTER → 2024-12-15 07:20 | Outpatient (REF) | payer BC, SELFPAY | LOC: HWRCS 07:20 | PROVIDERS: ATTENDING PHYSICIAN Internal Medicine Cardiovascular Disease; FAMILY PHYSICIAN Internal Medicine | DX: I35.0 Nonrheumatic aortic (valve) stenosis (principal) | CPT/HCPCS: 93306 ==

== ENCOUNTER → 2024-12-21 13:22 | Outpatient (REF) | payer BC, SELFPAY | LOC: HWWDC 13:22 | PROVIDERS: ATTENDING PHYSICIAN Internal Medicine | DX: Z12.31 Encounter for screening mammogram for malignant neoplasm of breast (principal) | CPT/HCPCS: 77063; 77067 ==